=== PATIENT | male | born 1995 | race Caucasian/White ===

== ENCOUNTER 2017-05-10 07:36 | Emergency (ER) | payer MEDICAID ==
[~2017-05-10] VITALS: Ht 188 cm; Wt 117.9 kg
--- NOTE | 2017-05-10 07:55 | Emergency Room Report ---
History of Present Illness Time Seen by MD Dowd Presenting Problem in Triage Pt arrived:Walked Presenting Problem:PT REPORTS HE WAS AT WORK, COUGHED UP SPUTUM THAT WAS BLOOD TINGED. Onset of symptoms date/time:05/10/17/ or onset unknown for:MEDICAL HX UNKNOWN Treatment Prior to Arrival: FIELD INTERVIEWER Provided by: Sepsis Risk Assessment: Temp: 98.1 B/P: 156/94 MAP: 114 Pulse: 93 Resp: 18 Recent fever? N Clinical Suspician of Infection? N Mental Status: 1 - Regular (Normal Baseline) Sepsis Risk:Low Sepsis Risk Have you (or family members/close friends) recently traveled outside the [place]? N If Yes, where/when: Have you had exposure to infectious disease within the past month? N TB? Other? Specify: Source patient, RN notes reviewed Exam Limitations no limitations Comment Pt was at work and started coughing and coughed up some blood tinged sputum. He has had a flu like illness for the past week or so with ? fever and chills....He does not smoke Cardiac Chest Pain Chest pain indicative of cardiac No ALLERGIES Coded Allergies: No Known Allergies (05/10/17) Home Medications Reported Medications No Known Home Medications History Medical History General CAD? No Angina: No HI: No Hypertension? No Hyperlipidemia? No CHF? No DVT? No PE? No COPD? No Asthma? No Anemia? No GERD? No Gastric ulcers? No GI Bleed? No Hernia? No Thyroid Problems? No Hypothyroidism? No CVA? No Seizures? No Diabetes? No Renal Insuffiency? No End Stage Renal Disease? No UTI? No Stones? No GB Disease: No Nephritic Syndrome? No Asplenia? No Hepatitis? No Sickle Cell Disease? No Arthritis? No Migraines? No Cataracts? No Glaucoma? No MRSA? No HIV? No TB? No Anxiety? No Depression? No Cancer? No More? No Immunization Hx DT/Tetanus Unknown Surgical Hx Previous Surgery?N Social History Smoking Hx Smoker: Never Smoker Tobacco: No Alcohol Alcohol: No Review of Systems All Other Systems Reviewed and Negative Constitutional see HPI ENT see HPI. Respiratory see HPI Physical Exam Vital Signs Vital Signs Date Time Temp Pulse Resp B/P Pulse O2 O2 Flow FiO2 Ox Delivery Rate 05/10 906 98.1 83 18 117/79 98 05/10 0826 98.1 77 18 144/80 97 07/09 0740 98.1 93 18 156/94 97 General Appearance normal appearance, WD/WN, no apparent distress Respiratory Status No: respiratory distress. Lung Sounds bilateral: normal breath sounds. Cardiovascular normal exam, regular rate/rhythm Neurologic alert, assistant real estate manager II-XII nml as tested, normal exam Medical Decision Making LABS/Meds/Orders Pt receiving controlled substance in ED? Yes Ralf was queried for this patient? No Reason not queried - emergent pt cond=no time Results/Orders Laboratory Tests 05/10/17 0841: Influenza Type A Ag NOT DETECTED, Influenza Type B Ag NOT DETECTED 05/10/17 0815: D-Dimer < 100, WBC 4.1 L, RBC 5.69, Hgb 16.6, Hct 47.6, MCV 83.6, RDW 12.5, Plt Count 141 L, MPV 6.9 L, Gran % 46.3, Gran # 1.9, Lymphocytes % 39.9, Monocytes % 12.2 H, Eosinophils % 0.4, Basophils % 1.3, Lymphocytes # 1.7, Monocytes # 0.5, Eosinophils # 0.0, Basophils # 0.1, PUBS MCHC 34.8, MCH 29.1 Current Medication Orders Sig/Yemi Start time Last Medication Dose Route Stop Time Status Admin Sodium Chloride 10 ML PRN PRN 05/10 800 AC IV 05/11 800 Orders Procedure Date/time Status CULTURE, THROAT 05/10 841 Active IV SALINE LOCK 05/10 801 Active STREP SCREEN THROAT 05/10 800 Complete INFLUENZA A&B ANTIGENS 05/10 800 Complete D-DIMER 05/10 800 Complete CBC WITH AUTO DIFF 05/10 800 Complete CHEST(2 VIEWS-NOT PORTABLE) 05/10 748 Active Departure Departure Time of Disposition 0937 Disposition DC Home or Self Care(routine) Clinical Impression Primary Impression: Acute maxillary sinusitis Qualifiers: Recurrence: not specified as recurrent Qualified Code: J01.00 - Acute maxillary sinusitis, unspecified Secondary Impressions: Upper respiratory infection Qualifiers: URI type: unspecified URI Qualified Code: J06.9 - Acute upper respiratory infection, unspecified Condition STABLE Referrals CHRISTELLE SADLER Patient Instructions DI for Sinusitis, Sinusitis (Alternative Therapy) Additional Instructions Use meds as directed and follow up with PCP or return to the ED as needed. Given excuse for work for the next 2 days. Discharge Counseling Counseled pt/family regarding diagnosis, test results, medications/RX, home care, follow up needs Prescriptions Current Visit Scripts CEPHALEXIN (Keflex 500MG Capsule) 500 MG PO QID #40 CAP GUAIFENESIN/CODEINE PHOSPHATE (ROBITUSSIN AC (Generic) Syrup) 5 ML PO Q4HP PRN cough #120 ML Ref 1 ED Critical Care Critical Care No If Critical Care minutes are documented, the time involved in the performance of seperately reportable procedures was not counted toward critical care time documented. I directly delivered medical care to this critically ill and/or injured patient. Timely evaluation and treatment was necessary to address the significant organ system(s) dysfunction present in this patient. at 0941
--- OUTSIDE RECORDS SUMMARY | 2017-05-10 08:07 | External Medical Summary Rpt ---
Demographics Preferred Language Czech Marital Status Unknown Restorationist Affiliation Unknown Race Unknown Ethnic Group Unknown Author Author , TERE CARRANZA Address Unknown Phone [email or web address] Care Team Providers Care Electric Brain Wave Equipment Mechanic Name Role Phone [facility], Unavailable Unavailable [facility] Purpose Continuity of Care Document - 01-28-2010 through 2016 Medications Na ND Rx Da Fi Fi Am Da Di Ph RX Ph St me C No te ll ll ou ys ag ar # ys at rm s nt no ma ic us Or Da si cy ia de te s n re d IB 53 03 03 0 30 10 WA 63 TU Ac UP 74 -2 -2 .0 YN 14 CK ti RO 60 9 9- 00 ES 26 ER ve FE 46 20 20 1 N 60 10 10 PH JA 80 5 AR ME 0 MA S MG CY P TA BL ET DI 00 03 03 0 45 20 WA 63 TU Ac FF 29 -2 -2 .0 YN 14 CK ti ER 95 - 9- 00 ES 26 ER ve IN 91 20 20 9 04 10 10 PH JA 0. 5 AR ME 1% MA S CY P GE L
--- OUTSIDE RECORDS SUMMARY | 2017-05-10 08:07 | External Medical Summary Rpt ---
Demographics Preferred Language Mongolian Marital Status Unknown Lutheran Affiliation Unknown Race Unknown Ethnic Group Unknown Author Author , TERE CARRANZA Address Unknown Phone [email or web address] Care Team Providers Care Hospital Nurse Name Role Phone [facility], Unavailable Unavailable [facility] Purpose Continuity of Care Document - [...]
--- OUTSIDE RECORDS SUMMARY | 2017-05-10 08:07 | External Medical Summary Rpt ---
Demographics Preferred Language Lithuanian Marital Status Unknown Yazidi Affiliation Unknown Race Unknown Ethnic Group Unknown Author Author , TERE CARRANZA Address Unknown Phone [email or web address] Care Team Providers Care Synthetic Cloth Binding Cutter Name Role Phone [facility], Unavailable Unavailable [facility] Purpose Continuity of Care Document - 01-28-2010 through 2016 Problems Code Diagnosis DOS Provider Status F17.210 NICOTINE 04-07-2017 DEPENDENCE, CIGARETTES, UNCOMPLICAT ED J06.9 ACUTE UPPER 04-07-2017 RESPIRATORY INFECTION, UNSPECIFIED R03.0 ELEVATED 04-07-2017 BLOOD-PRESS URE READING, WITHOUT DIAGNOSIS OF HYPERTENSIO N R05 COUGH 04-07-2017 R09.81 NASAL 04-07-2017 CONGESTION R10.9 UNSPECIFIED 04-07-2017 ABDOMINAL PAIN R11.2 NAUSEA WITH 04-07-2017 VOMITING, UNSPECIFIED Medications Na ND Rx Da Fi Fi Am Da Di Ph RX Ph St me C No te ll ll ou ys ag ar # ys at rm s nt no ma ic us Or Da si cy ia de te s n re d DI 00 03 03 0 45 20 WA 63 TU Ac FF 29 -2 -2 .0 YN 14 CK ti ER 95 9 9 00 ES 26 ER ve IN 91 20 20 9 04 10 10 PH JA 0. 5 AR ME 1% MA S CY P GE L IB 53 03 03 0 30 10 WA 63 TU Ac UP 74 -2 -2 .0 YN 14 CK ti RO 60 9 9- 00 ES 26 ER ve FE 46 20 20 1 N 60 10 10 PH JA 80 5 AR ME 0 MA S MG CY P TA BL ET
--- OUTSIDE RECORDS SUMMARY | 2017-05-10 08:07 | External Medical Summary Rpt ---
Demographics Preferred Language Slovenian Marital Status Unknown Muslim Affiliation Unknown Race Unknown Ethnic Group Unknown Author Author , TERE CARRANZA Address Unknown Phone Care Team Providers Care Taxi Proprietor Name Role Phone [facility], Unavailable Unavailable [facility] Purpose Continuity of Care Document [...]
--- OUTSIDE RECORDS SUMMARY | 2017-05-10 08:08 | External Medical Summary Rpt ---
Author Author TERE Oliver, [employer] Address Unknown Phone Unavailable
--- OUTSIDE RECORDS SUMMARY | 2017-05-10 08:08 | External Medical Summary Rpt ---
Author Author , TERE CARRANZA Address Unknown Phone [email or web address] Immunization Name Date Rout CVX Reac Dose Comm Prov Is Faci e tion ent ider Refu lity Give sed n Junaid - 2 999 Hist H194 No H194 o-OP - oric V 98 al Info rmat ion - Sour ce Unsp ecif ied MMR - 3 999 Hist H194 No H194 - oric 98 al Info rmat ion - Sour ce Unsp ecif ied DTaP - 107 999 Hist H194 No H194 , UF - oric 98 al Info rmat ion - Sour ce Unsp ecif ied
--- OUTSIDE RECORDS SUMMARY | 2017-05-10 08:08 | External Medical Summary Rpt ---
Author Author , TERE CARRANZA Address Unknown Phone [email or web address] Immunization Name Date Rout CVX Reac Dose [...]
[2017-05-10 08:31] LABS: HEMOGLOBIN 16.6 g/dL (14.1-18.0); LYMPH # 1.7 K/mm3 (0.7-4.5); LYMPH % 39.9 % (10-50)
[2017-05-10 08:57] LABS: STREP SCREEN (RAPID) NEGATIVE
[2017-05-10] MEDS ORDERED: GUAIFENESIN AN118 ML PO (09:40)
[2017-05-10] MEDS ORDERED: KEFLEX 500MG.500 MG PO (09:40)
[2017-05-10 09:59] VITALS: BP 114/67
--- NOTE | 2017-05-10 22:23 | RADIOLOGY REPORT PS360 ---
CHEST(2 VIEWS-NOT PORTABLE) Ordering Physician: Cole Rodriguez MD Patient Age: 21 years: Male HISTORY: PRODUCTIVE COUGHcough for several days. Reports coughing up some blood at 4:00 AM TECHNIQUE: PA and lateral chest FINDINGS No focal pneumonia. Nothing definitely acute. Lungs are well expanded and clear. No pleural effusion. No pneumothorax. Heart gabriel and mediastinal structures satisfactory. Subtle kyphosis lower T-spine with some mild endplate irregularities which may reflect a minor old epiphysitis features at mid and lower T-spine. IMPRESSION: .. Lungs clear. Nothing definitely acute
== END 2017-05-10 10:00 | disposition home or self-care (01) ==
LOC: ER 07:36
PROVIDERS: General Practice
DX: J01.00 Acute maxillary sinusitis, unspecified (principal); J06.9 Acute upper respiratory infection, unspecified